=== PATIENT | male | born 1975 | race Caucasian/White ===

== ENCOUNTER 2017-08-11 21:07 | Emergency (ER) | payer OTHER ==
[2017-08-11 21:29] VITALS: BP 138/73
[2017-08-11 23:22] LABS: microscopic required? NO
[2017-08-11 23:55] LABS: urine erythrocyte NEGATIVE (NEGATIVE)
== END 2017-08-12 00:31 | disposition home or self-care (01) ==
LOC: ED 21:07
PROVIDERS: Emergency Medicine
DX: R30.0 Dysuria (principal)
CPT/HCPCS: 87491; 87591

== ENCOUNTER 2017-09-18 17:50 | Emergency (ER) | payer OTHER ==
[~2017-09-18] VITALS: Ht 175.3 cm; Wt 81.2 kg
[2017-09-18 17:58] VITALS: Ht 175.3 cm; Wt 81.2 kg
[2017-09-18 20:08] LABS: microscopic required? NO
[2017-09-18 20:21] LABS: urine erythrocyte NEGATIVE (NEGATIVE)
[2017-09-18 22:21] VITALS: BP 116/68
== END 2017-09-18 22:21 | disposition home or self-care (01) ==
LOC: ED 17:50
PROVIDERS: Specialist
DX: N43.3 Hydrocele, unspecified (principal); I86.1 Scrotal varices
CPT/HCPCS: Q0092

== ENCOUNTER 2018-05-04 12:45 | Emergency (ER) | payer OTHER ==
[~2018-05-04] VITALS: Ht 175.3 cm; Wt 84.8 kg
[2018-05-04 12:55] VITALS: Ht 175.3 cm; Wt 84.8 kg
[2018-05-04 14:58] VITALS: BP 116/64
== END 2018-05-04 14:58 | disposition home or self-care (01) ==
LOC: ED 12:45
DX: R30.0 Dysuria (principal); R35.0 Frequency of micturition
CPT/HCPCS: 87491; 87591